=== PATIENT | female | born 1980 | race Caucasian/White ===

== ENCOUNTER 2017-04-17 00:14 | Emergency (ER) | payer SELFPAY ==
--- NOTE | 2017-04-17 00:17 | EDM.PDOC ---
ED HPI GENERAL MEDICAL PROBLEM - General Chief Complaint: General Stated Complaint: needs insulin Time Seen by Provider: 04/17/17 00:16 Source of Information: Reports: Patient, RN, RN Notes Reviewed History Limitations: Reports: No Limitations - History of Present Illness INITIAL COMMENTS - FREE TEXT/NARRATIVE: Patient presents to the ED at [facility] in need of prescription refill of Novolog. Patient states she ran out of her Novolog today and is not able to get back to her pharmacy until Wednesday. Patient denies any hyper/hypoglycemic episodes. Patient states she see a provider at the [facility] in [place]. She has a current prescription on 10 units SQ Novolog before each meal. Patient denies any current health concerns. She states she is starting to feel a little nauseated. Otherwise, no other complaints. - Related Data Allergies Allergy/AdvReac Type Severity Reaction Status Date / Time No Known Allergies Allergy Verified 04/17/17 00:21 Home Meds: Home Meds Insulin Aspart [NovoLOG] 10 unit SUBCUT TIDAC 04/17/17 [History] Insulin Aspart [NovoLOG] 10 unit SUBCUT TIDAC #1 vial 04/17/17 [Rx] Insulin Aspart [Novolog] 10 unit SQ TIDMEALS #1 pen 04/17/17 [Rx] Insulin Detemir [Levemir] 30 unit SQ DAILY 04/17/17 [History] ED ROS GENERAL - Review of Systems Review Of Systems: See Below Constitutional: Denies: Fever, Chills, Weakness Respiratory: Denies: Shortness of Breath, Cough Cardiovascular: Denies: Chest Pain, Palpitations Endocrine: Reports: No Symptoms GI/Abdominal: Reports: Nausea. Denies: Abdominal Pain, Vomiting Skin: Reports: No Symptoms Neurological: Reports: No Symptoms ED EXAM, GENERAL - Physical Exam Exam: See Below Exam Limited By: No Limitations General Appearance: Alert, No Apparent Distress Respiratory/Chest: No Respiratory Distress, Lungs Clear, Normal Breath Sounds Cardiovascular: Normal Peripheral Pulses, Regular Rate, Rhythm GI/Abdominal: Normal Bowel Sounds, Soft, Non-Tender Neurological: Alert, Oriented Skin Exam: Warm, Dry, Intact, Normal Color, No Rash Course - Vital Signs Last Recorded V/S: Last Vital Signs Temp 36.6 C 04/17/17 00:16 Pulse 86 04/17/17 00:16 Resp 16 06/17/17 00:16 BP 134/82 04/17/17 00:16 Pulse Ox 98 04/17/17 00:16 Departure - Departure Time of Disposition: 00:25 Disposition: Home, Self-Care 01 Condition: Good Clinical Impression: Diabetes type I Qualifiers: Diabetes mellitus complication status: without complication Qualified Code(s): E10.9 - Type 1 diabetes mellitus without complications - Discharge Information Prescriptions: Insulin Aspart [NovoLOG] 10 unit SUBCUT TIDAC #1 vial Insulin Aspart [Novolog] 10 unit SQ TIDMEALS #1 pen Instructions: Type 1 Diabetes Mellitus, Adult Referrals: Family,Healthcare Center [Ordering Only Provider] - Forms: ED Department Discharge - Problem List Review Problem List Initiated/Reviewed/Updated: Yes - Assessment/Plan Plan: Only prescription for Novolog vial dispensed to patient. Patient declined prescription for Flexpen due to cost.
[2017-04-17 00:18] VITALS: BP 134/82
== END 2017-04-17 00:40 | disposition home or self-care (01) ==
LOC: VM.ED 00:14
DX: E10.9 Type 1 diabetes mellitus without complications (principal); Z79.4 Long term (current) use of insulin
CPT/HCPCS: 99281; 99283-GF

== ENCOUNTER 2020-11-07 09:24 | Emergency (ER) | payer MEDICAID ==
[2020-11-07] MEDS ORDERED: Sodium Chloride 0.9% 10 ML Syringe FLUSH PRN (09:37)
[2020-11-07] MEDS ORDERED: Lactated Ringers 1,000 ML IV ONE (09:42)
[2020-11-07] MEDS ORDERED: diphenhydrAMINE 50 MG/ML SDV IVPUSH ONE (09:42)
[2020-11-07] MEDS ORDERED: Ketorolac 30 MG/ML SDV IVPUSH ONE (09:42)
[2020-11-07] MEDS ORDERED: cefTRIAXone 2 GM Vial IVPUSH ONE (10:01)
[2020-11-07] MEDS ORDERED: Phenazopyridine 95 MG Tab PO STA (10:09)
[2020-11-07 10:20] LABS: ANION GAP 14.8 mmol/L (10-20); CHLORIDE,CL 98 mmol/L (98-107); SODIUM,NA 137 mmol/L (136-145)
[2020-11-07] MEDS ORDERED: HYDROmorphone 1 MG/ML Syringe IVPUSH ONE (10:20)
--- NOTE | 2020-11-07 11:27 | EDM.PDOC ---
ED HPI GENERAL MEDICAL PROBLEM - General Chief Complaint: Abdominal Pain Stated Complaint: suprapubic pain Time Seen by Provider: 11/07/20 09:35 Source of Information: Reports: Patient History Limitations: Reports: No Limitations - History of Present Illness INITIAL COMMENTS - FREE TEXT/NARRATIVE: Patient comes emergency department today with complaints of abdominal pain. This patient awoke just a couple of hours ago with severe suprapubic pain. Pain is constant pressure and shooting in the suprapubic region. She has never had anything like this before. She denies any fever. Positive for chills. Nausea without vomiting. No flank pain. No hematuria dysuria or urinary frequency. No black or tarry stools. Having normal bowel movements. No chest pain or shortness of breath or difficulty breathing. No cough or congestion. No recent surgery. No problems with constipation. She is a type I diabetic whose blood sugars have been appropriate she relates she only checks them once a day in the morning and they have been about 130. No Covid exposure no Covid symptoms. Lower Abdomen Pain Score (Numeric/FACES): 9 - Related Data Allergies Allergy/AdvReac Type Severity Reaction Status Date / Time No Known Allergies Allergy Verified 11/07/20 10:00 Home Meds: Home Meds Insulin Aspart [Novolog] 10 unit SQ TIDMEALS #1 pen 04/17/17 [Rx] Insulin Detemir [Levemir] 30 unit SQ DAILY 04/17/17 [History] Hydrocodone/Acetaminophen [[place] 5-325 Tablet] 1 each PO Q6HR PRN #12 tablet 11/07/20 [Rx] Promethazine [Phenergan] 25 mg PO Q8H PRN #9 tab 11/07/20 [Rx] Sulfamethoxazole/Trimethoprim [Bactrim Ds Tablet] 1 each PO BID #20 tablet 11/07/20 [Rx] Past Medical History Genitourinary History: Reports: Chronic Renal Insuffiency, Other (See Below) 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 ED EXAM, GI/ABD - Physical Exam Exam: See Below Text/Narrative:: She is tearful when I enter the room and she is bent over holding the suprapubic region. Exam Limited By: No Limitations General Appearance: Alert, WD/WN, Moderate Distress Eyes: Bilateral: EOMI Ears: Normal External Exam, Normal Canal Nose: Normal Inspection, Normal Mucosa Throat/Mouth: Normal Inspection, Normal Lips, Normal Voice Head: Atraumatic, Normocephalic Neck: Normal Inspection, Supple, Non-Tender, Full Range of Motion Respiratory/Chest: No Respiratory Distress, Lungs Clear, Normal Breath Sounds, Chest Non-Tender Cardiovascular: Normal Peripheral Pulses, Regular Rate, Rhythm GI/Abdominal Exam: Normal Bowel Sounds, Soft, No Organomegaly, No Distention, No Abnormal Bruit, No Mass, Pelvis Stable, Tender (No peritoneal signs. She has some mild tenderness in the suprapubic region with palpation. No guarding rebound or rigidity.) (Female) Exam: Deferred Rectal (Female) Exam: Deferred Back Exam: Normal Inspection, Full Range of Motion, CVA Tenderness (R). No: CVA Tenderness (L) Extremities: Normal Inspection, Normal Range of Motion, Non-Tender, Normal Capillary Refill Neurological: Alert, Oriented, Normal Cognition, No Motor/Sensory Deficits Psychiatric: Anxious Skin Exam: Dry, Intact, Cool, Pallor Lymphatic: No Adenopathy Course - Vital Signs Last Recorded V/S: Last Vital Signs Temp 97.3 F 11/07/20 09:25 Pulse 99 11/07/20 09:25 Resp 16 11/07/20 09:25 BP 118/62 11/07/20 09:25 Pulse Ox 100 11/07/20 09:25 - Orders/Labs/Meds Orders: Active Orders 24 hr Category Date Time Status CULTURE URINE [RM] Stat Lab 11/07/20 09:30 Received Peripheral IV Insertion Adult [OM.PC] Stat Oth 11/07/20 09:37 Ordered Labs: Laboratory Tests 11/07/20 11/07/20 11/07/20 Range/Units 09:30 09:30 09:53 WBC 9.4 (4.0-10.0) x10^3/uL RBC 4.27 (4.00-5.50) x10^6/uL Hgb 13.3 (12.0-16.0) g/dL Hct 37.2 (33.0-47.0) % MCV 87.1 (78.0-93.0) fL MCH 31.1 (26.0-32.0) pg MCHC 35.8 (32.0-36.0) g/dL RDW Coeff of Melba 13.3 (10.0-15.0) % Plt Count 347 (130-400) x10^3/uL Neut % (Auto) 80.9 H (50.0-80.0) % Lymph % (Auto) 10.8 L (25.0-50.0) % Cocke % (Auto) 7.0 (2.0-11.0) % Eos % (Auto) 0.9 (0.0-4.0) % Baso % (Auto) 0.4 (0.2-1.2) % Sodium (136-145) mmol/L Potassium (3.5-5.1) mmol/L Chloride (98-107) mmol/L Carbon Dioxide (21-32) mmol/L Anion Gap (10-20) mmol/L BUN (7-18) mg/dL Creatinine (0.55-1.02) mg/dL Est Cr Clr Drug Dosing Estimated GFR (MDRD) Glucose (74-106) mg/dL Calcium (8.5-10.1) mg/dL Corrected Calcium (8.5-10.1) mg/dL Total Bilirubin (0.2-1.0) mg/dL AST (15-37) U/L ALT (14-59) U/L Alkaline Phosphatase (46-116) U/L C-Reactive Protein (<=0.9) mg/dL Total Protein (6.4-8.2) g/dL Albumin (3.4-5.0) g/dL Globulin Albumin/Globulin Ratio Urine Color Kristina H (YELLOW) Urine Appearance Turbid H (CLEAR) Urine pH >=9.0 H (5.0-8.0) Ur Specific [place] 1.020 Urine Protein >=300 H (NEGATIVE) mg/dL Urine Glucose (UA) 500 H (NEGATIVE) mg/dL Urine Ketones Negative (NEGATIVE) mg/dL Urine Occult Blood Large H (NEGATIVE) Urine Nitrite Positive H (NEGATIVE) Urine Bilirubin Small H (NEGATIVE) Urine Urobilinogen 0.2 (0.2) EU/dL Ur Leukocyte Esterase Small H (NEGATIVE) Urine RBC 20-30 H (NOT SEEN) /HPF Urine WBC >100 H (NOT SEEN) /HPF Ur Squamous Epith Cells Few H (NEGATIVE) /HPF Amorphous Sediment Few Urine Bacteria Many H (NEGATIVE) /HPF Urine Mucus Few H (NEGATIVE) /LPF Urine HCG, Qual Negative (NEGATIVE) 11/07/20 Range/Units 09:53 WBC (4.0-10.0) x10^3/uL RBC (4.00-5.50) x10^6/uL Hgb (12.0-16.0) g/dL Hct (33.0-47.0) % MCV (78.0-93.0) fL MCH (26.0-32.0) pg MCHC (32.0-36.0) g/dL RDW Coeff of Melba (10.0-15.0) % Plt Count (130-400) x10^3/uL Neut % (Auto) (50.0-80.0) % Lymph % (Auto) (25.0-50.0) % Cocke % (Auto) (2.0-11.0) % Eos % (Auto) (0.0-4.0) % Baso % (Auto) (0.2-1.2) % Sodium 137 (136-145) mmol/L Potassium 3.8 (3.5-5.1) mmol/L Chloride 98 (98-107) mmol/L Carbon Dioxide 28 (21-32) mmol/L Anion Gap 14.8 (10-20) mmol/L BUN 12 (7-18) mg/dL Creatinine 0.9 (0.55-1.02) mg/dL Est Cr Clr Drug Dosing TNP Estimated GFR (MDRD) > 60 Glucose 192 H (74-106) mg/dL Calcium 9.5 (8.5-10.1) mg/dL Corrected Calcium 9.26 (8.5-10.1) mg/dL Total Bilirubin 0.7 (0.2-1.0) mg/dL AST 25 (15-37) U/L ALT 45 (14-59) U/L Alkaline Phosphatase 122 H (46-116) U/L C-Reactive Protein 0.6 (<=0.9) mg/dL Total Protein 8.7 H (6.4-8.2) g/dL Albumin 4.3 (3.4-5.0) g/dL Globulin 4.4 Albumin/Globulin Ratio 0.98 Urine Color (YELLOW) Urine Appearance (CLEAR) Urine pH (5.0-8.0) Ur Specific [place] Urine Protein (NEGATIVE) mg/dL Urine Glucose (UA) (NEGATIVE) mg/dL Urine Ketones (NEGATIVE) mg/dL Urine Occult Blood (NEGATIVE) Urine Nitrite (NEGATIVE) Urine Bilirubin (NEGATIVE) Urine Urobilinogen (0.2) EU/dL Ur Leukocyte Esterase (NEGATIVE) Urine RBC (NOT SEEN) /HPF Urine WBC (NOT SEEN) /HPF Ur Squamous Epith Cells (NEGATIVE) /HPF Amorphous Sediment Urine Bacteria (NEGATIVE) /HPF Urine Mucus (NEGATIVE) /LPF Urine HCG, Qual (NEGATIVE) Meds: Medications Discontinued Medications Generic Name Dose Route Start Last Admin Trade Name Freq PRN Reason Stop Dose Admin Ceftriaxone Sodium 2 gm 11/07/20 10:01 11/07/20 10:17 Rocephin IVPUSH 11/07/20 10:02 2 gm STAT ONE Administration Diphenhydramine HCl 25 mg 11/07/20 09:42 11/07/20 09:53 Benadryl IVPUSH 11/07/20 09:43 25 mg ONETIME ONE Administration Hydromorphone HCl 1 mg 11/07/20 10:20 11/07/20 10:25 Dilaudid IVPUSH 11/07/20 10:21 1 mg ONETIME ONE Administration Lactated Ringer's 1,000 mls @ 999 mls/hr 11/07/20 09:42 11/07/20 09:53 Ringers, Lactated IV 11/07/20 10:42 999 mls/hr ONETIME ONE Administration Ketorolac Tromethamine 30 mg 11/07/20 09:42 11/07/20 09:53 Toradol IVPUSH 11/07/20 09:43 30 mg ONETIME ONE Administration Phenazopyridine HCl 190 mg 11/07/20 10:09 11/07/20 10:17 Urinary Pain Relief PO 11/07/20 10:10 190 mg NOW STA Administration Sodium Chloride 10 ml 11/07/20 09:37 Saline Flush FLUSH ASDIRECTED PRN Keep Vein Open - Re-Assessments/Exams Free Text/Narrative Re-Assessment/Exam: 11/07/20 IV was established labs are drawn. 1 L LR wide open. Benadryl 25 mg IV push for nausea. Ketorolac 30 mg IV push for pain. Urinalysis is clearly infectious with than 100 WBCs. Positive for nitrites and leukocytes. She also has glucose and protein but she is a diabetic as well. She has no ketones in her urine. Urine culture pending. 2 g Rocephin IV piggyback. Patient still continued to be quite uncomfortable she was given 1 mg of Dilaudid with resolution of pain. 11/07/20 Laboratory evaluation shows a WBC of 9.4 hemoglobin of 13.3,. CMP with a glucose of 192 C-reactive protein 0.6 otherwise unremarkable. HCG negative. I did discuss with the patient that she has a pyelonephritis especially with the tenderness to her right CVA region. Her pain was much improved and her nausea was controlled in the emergency department with Benadryl and Dilaudid. Her creatinine function is good as well as her blood sugars a little high. She was able to eat and drink in the emergency department. I discussed the home therapy to include antibiotics pain medicine and nausea control medication. Is important for her to rest and make sure that she drinks plenty of fluids. I explained the importance of her returning if she is unable control her fever keep her antibiotics down or unable to hydrate herself. She is understanding of this and her questions are answered and she was discharged home. Departure - Departure Time of Disposition: 11:22 Disposition: Home, Self-Care 01 Clinical Impression: Pyelonephritis Diabetes type I Qualifiers: Diabetes mellitus complication status: without complication Qualified Code(s): E10.9 - Type 1 diabetes mellitus without complications - Discharge Information Prescriptions: Sulfamethoxazole/Trimethoprim [Bactrim Ds Tablet] 1 each PO BID #20 tablet Hydrocodone/Acetaminophen [[place] 5-325 Tablet] 1 each PO Q6HR PRN #12 tablet PRN Reason: Pain Promethazine [Phenergan] 25 mg PO Q8H PRN #9 tab PRN Reason: Nausea/Vomiting Instructions: Acetaminophen; Hydrocodone tablets or capsules, Pyelonephritis, Adult, [id number], Antibiotic Medicine, Adult, [id number], Phenazopyridine tablets, Sulfamethoxazole; Trimethoprim, [id number] tablets, Probiotics Referrals: PCP,Not In Area [Primary Care Provider] - Forms: ED Department Discharge Additional Instructions: Home rest the nest few days. Diet as tolerated. Push oral fluids as much as possible. If you are not urinating every 2-3 hours you are not drinking enough fluids. Bactrim DS, 1 tablet twice daily for the next 10 days. Rx sent to [facility] Start 11/08/20 morning. Tylenol and or Ibuprofen as needed for pain fever discomfort. Phenergan 1 tablet every 6 hrs as needed for nausea. Caution sedation. [facility]. If pain not controlled with above. [place] 1 tablet every 6 hrs with food as needed for pain. Caution sedation especially if taking with the Phenergan. Rx sent to [facility]. Return to the ED if new or worsening symptoms. Especially if fever not controlled with above or unable to keep your medications down or blood sugars are getting out of control. Recheck with PCP in the next 4-6 days if not improving sooner if worse. Watch your blood sugars closely the next few days and adjust your insulin appropriately. Sepsis Event Note (ED) - Evaluation Sepsis Screening Result: No Definite Risk - Focused Exam Vital Signs: Vital Signs Temp Pulse Resp BP Pulse Ox 11/07/20 09:25 97.3 F 99 16 118/62 100 - My Orders Last 24 Hours: My Active Orders 11/07/20 09:30 CULTURE URINE [RM] Stat 11/07/20 09:37 Peripheral IV Insertion Adult [OM.PC] Stat - Assessment/Plan Last 24 Hours: My Active Orders 11/07/20 09:30 CULTURE URINE [RM] Stat 11/07/20 09:37 Peripheral IV Insertion Adult [OM.PC] Stat
== END 2020-11-07 11:35 | disposition home or self-care (01) ==
LOC: VM.ED 09:24
DX: N12 Tubulo-interstitial nephritis, not specified as acute or chronic (principal); E10.9 Type 1 diabetes mellitus without complications; N18.9 Chronic kidney disease, unspecified
CPT/HCPCS: 36415; 80053; 81001; 81025; 85025; 86140; 87086; 87088; 87186; 96374; 96375; 99284; 99284-25; A9270-GY; J0696; J1170; J1200; J1885; J7120

== ENCOUNTER 2023-10-27 05:35 | Emergency (ER) | payer MEDICAID ==
[2023-10-27] MEDS ORDERED: fentaNYL 50 MCG/ML SDV IVPUSH ONE (06:03)
[2023-10-27] MEDS ORDERED: Ondansetron 4 MG/2 ML SDV IVPUSH ONE (06:03)
[2023-10-27] MEDS ORDERED: Naloxone 0.4 MG/ML SDV IVPUSH PRN (06:03)
[2023-10-27] MEDS ORDERED: Sodium Chloride 0.9% 1,000 ML IV ONE (06:03)
[2023-10-27 06:41] LABS: BASOPHILS ABSOLUTE AUTO 0.1 x10^3/uL (0.0-0.2); BASOPHILS PERCENT AUTO 0.4 % (0.2-1.2); EOSINOPHILS ABSOLUTE AUTO 0.1 x10^3/uL (0.0-0.5); EOSINOPHILS PERCENT AUTO 0.6 % (0.0-4.0); HEMATOCRIT 34.4 % (33.0-47.0); HEMOGLOBIN 11.6 g/dL (12.0-16.0); IMMATURE GRAN ABSOLUTE AUTO 0.02 x10^3/uL (0.00-0.07); LYMPHOCYTES ABSOLUTE AUTO 0.2 x10^3/uL (1.0-4.8); LYMPHOCYTES PERCENT AUTO 1.6 % (25.0-50.0); MEAN CORPUSCULAR HEMOGLOBIN 29.9 pg (26.0-32.0); MEAN CORPUSCULAR HGB CONC 33.7 g/dL (32.0-36.0); MEAN CORPUSCULAR VOLUME 88.7 fL (78.0-93.0); MONOCYTES ABSOLUTE AUTO 0.5 x10^3/uL (0.0-0.8); MONOCYTES PERCENT AUTO 3.6 % (2.0-11.0); PLATELET COUNT,PLT 216 x10^3/uL (130-400); RED BLOOD CELL COUNT 3.88 x10^6/uL (4.00-5.50); WHITE BLOOD CELL COUNT,WBC 13.9 x10^3/uL (4.0-10.0)
[2023-10-27 06:50] LABS: NEUTROPHILS PERCENT AUTO 93.7 % (50.0-80.0)
[2023-10-27 06:53] LABS: A/G RATIO 1.17; ALANINE AMINOTRANSFERASE,ALT 46 U/L (14-59); ALBUMIN 4.2 g/dL (3.4-5.0); ALKALINE PHOSPHATASE 72 U/L (46-116); ANION GAP 17.7 mmol/L (5-15); ASPARTATE AMNIOTRANSFERASE,AST 37 U/L (15-37); BILIRUBIN TOTAL 0.6 mg/dL (0.2-1.0); BLOOD UREA NITROGEN,BUN 27 mg/dL (7-18); CALCIUM 9.3 mg/dL (8.5-10.1); CARBON DIOXIDE,CO2 23 mmol/L (21-32); CHLORIDE,CL 102 mmol/L (98-107); CREATININE 1.7 mg/dL (0.55-1.02); EST CRCL DRUG DOSING (CG) 46.14 mL/min; LIPASE 14 U/L (19-71); PHOSPHORUS 2.5 mg/dL (2.6-4.7); POTASSIUM,K 4.7 mmol/L (3.5-5.1); PROTEIN TOTAL,TP 7.8 g/dL (6.4-8.2); SODIUM,NA 138 mmol/L (136-145)
[2023-10-27] MEDS ORDERED: HYDROmorphone 0.5 MG/0.5 ML Syringe IVPUSH ONE ×3 (06:53→10:49)
[2023-10-27 06:54] LABS: C-REACTIVE PROTEIN < 0.50 mg/dL (<=0.50); ESTIMATED GFR 38 mL/min (>=60); GLUCOSE RANDOM 455 mg/dL (70-99)
[2023-10-27 07:09] LABS: BASE EXCESS ARTERIAL,POC -5 mmol/L ((-2)-3); HCO3 ARTERIAL,POC 19.4 mmol/L (21-28); O2 SATURATION ARTERIAL,POC 98.3 % (94-98); PCO2 ARTERIAL,POC 29 mmHg (35-48); PH ARTERIAL,POC 7.43 pH (7.35-7.45); PO2 ARTERIAL,POC 106 mmHg (83-108)
[2023-10-27] MEDS ORDERED: Glucagon,Human Recombinant 1 MG Vial IM PRN ×2 (07:37→09:22)
[2023-10-27] MEDS ORDERED: 50% Dextrose in Water 50 ML Syringe IVPUSH PRN ×2 (07:37→09:22)
[2023-10-27] MEDS ORDERED: Insulin Regular, Human 100 Units/ML 3 ML Vial SUBCUT ONE (07:37)
[2023-10-27] MEDS ORDERED: Insulin Regular, Human 100 Units/ML 3 ML Vial IVPUSH ONE (09:22)
[2023-10-27 09:40] LABS: APPEARANCE,URINE SLIGHTLY CLOUDY (CLEAR); BILIRUBIN,URINE NEGATIVE (NEGATIVE); COLOR,URINE YELLOW (YELLOW); GLUCOSE,URINE 500 mg/dL (NEGATIVE); KETONES,URINE TRACE mg/dL (NEGATIVE); LEUKOCYTE ESTERASE,URINE NEGATIVE (NEGATIVE); NITRITE,URINE POSITIVE (NEGATIVE); OCCULT BLOOD,URINE MODERATE (NEGATIVE); PH,URINE 5.5 (5.0-8.0); PROTEIN,URINE NEGATIVE (NEGATIVE); UROBILINOGEN,URINE 0.2 EU/dL (0.2)
[2023-10-27 09:41] LABS: AMPHETAMINES SCREEN, URINE NEGATIVE (NEGATIVE); BACTERIA,URINE MODERATE /HPF (NOT SEEN); BARBITURATE SCREEN,URINE NEGATIVE (NEGATIVE); BENZODIAZEPINES SCREEN,URINE NEGATIVE (NEGATIVE); COCAINE METABOLITES,URINE NEGATIVE (NEGATIVE); METHADONE SCREEN, URINE NEGATIVE (NEGATIVE); METHAMPHETAMINE SCREEN, URINE NEGATIVE (NEGATIVE); MUCUS,URINE RARE /LPF (NOT SEEN); OXYCODONE SCREEN,URINE NEGATIVE (NEGATIVE); PCP SCREEN,URINE NEGATIVE (NEGATIVE); SQUAMOUS EPITHELIAL CELLS,UR RARE /HPF (NOT SEEN); THC SCREEN,URINE 50 NG/ML NEGATIVE (NEGATIVE)
[2023-10-27 09:42] LABS: BUPRENORPHINE SCREEN,URINE NEGATIVE (NEGATIVE)
[2023-10-27] MEDS ORDERED: cefTRIAXone 1 GM Vial IVPUSH ONE (09:47)
== END 2023-10-27 11:01 | disposition home or self-care (01) ==
LOC: VM.ED 05:35
DX: N39.0 Urinary tract infection, site not specified (principal); E10.9 Type 1 diabetes mellitus without complications; Z79.4 Long term (current) use of insulin; Z79.899 Other long term (current) drug therapy
CPT/HCPCS: 36415; 36600; 80053; 80305; 81001; 82803; 82947; 83605; 83690; 83735; 84100; 85025; 86140; 87086; 96361; 96374; 96375; 96376; 99284; J0696; J1170; J1815; J2405; J3010; J7030; 87088; 87186